=== PATIENT | female | born 1950 | race Caucasian/White ===

== ENCOUNTER 2016-10-24 05:55 | Day surgery (SDC) | payer OTHER ==
[2016-10-24 07:28] LABS: BASOPHIL 1.2 % (0-2.0); EOSINOPHIL 3.3 % (0-4.5); MCH 31.9 pg (25.7-33.7); MCHC 34.8 g/dl (32.0-36.0); MEAN CELL VOLUME 91.7 fl (80-96); MEAN PLT VOLUME 8.4 fl (7.5-11.1); NEUTROPHILS 48.6 % (42.8-82.8); PLATELET COUNT 252 K/MM3 (134-434); RDW 14.1 % (11.6-15.6)
[2016-10-24 07:34] LABS: ALBUMIN 3.9 g/dl (3.5-5.0); ALK PHOS 73 U/L (32-92); ANION GAP 7 (8-16); BILIRUBIN,TOTAL 0.4 mg/dl (0.2-1.0); CALCIUM 9.4 mg/dl (8.4-10.2); CO2 25 mmol/L (22-28); CREATININE 0.6 mg/dl (0.6-1.3); GLUCOSE,RANDOM 178 mg/dl (74-106); SGOT/AST 30 U/L (10-42); SGPT/ALT 46 U/L (10-40); TOT PROT 6.6 g/dl (6.4-8.3)
--- NOTE | 2016-10-24 07:35 | HP ---
Admitting History and Physical - Admission History of Present Illness: patient is a 66 y/o female with a past medical history of niddm, iron deficiency anemia, anxiety and bipolar disorder. Patient presents for ect, this will be her first ect treatment. she reports being diagnosed with depression in 2002. Patient attempted suicide in 2003 and 2006 after taking a large amount of pills. In 2009 she was diagnosed with bipolar depression. She was referred for ect after attempting several medication regimens with no relief. patient does report an increase in her depression within the past month and decreased energy. She denies any suicidal or homicidal ideation, visual or auditory hallucinations. History Source: Patient Limitations to Obtaining History: No Limitations - Past Medical History Heme/Onc: Yes: Anemia Endocrine: Yes: Diabetes Mellitus - Past Surgical History Past Surgical History: Yes: Colonoscopy, Hysterectomy Additional Past Surgical History: last colonscopy was 3 years ago, negative as per patient - Smoking History Smoking history: Never smoked Have you smoked in the past 12 months: No - Alcohol/Substance Use Hx Alcohol Use: No History of Substance Use: reports: None - Social History Usual Living Arrangement: Yes: Other (sister) ADL: Independent Occupation: retiried History of Recent Travel: No Home Medications - Allergies Allergies/Adverse Reactions: Allergies Allergy/AdvReac Type Severity Reaction Status Date / Time oxycodone AdvReac Intermediate Itching Verified 10/22/16 12:27 - Home Medications Home Medications: Ambulatory Orders Ferrous Sulfate 325 mg PO DAILY 10/22/16 Ibuprofen [Motrin -] 600 mg PO TID PRN 10/22/16 Lorazepam [Ativan] 2 mg PO TID 10/22/16 Metformin HCl 500 mg PO BID 10/22/16 Quetiapine Fumarate [Seroquel] 100 tab PO DAILY PRN 10/22/16 Quetiapine Fumarate [Seroquel] 300 mg PO HS 10/22/16 Family Disease History - Family Disease History Family History: Denies Review of Systems - Review of Systems Constitutional: reports: Lethargy Eyes: reports: No Symptoms HENT: reports: No Symptoms Neck: reports: No Symptoms Cardiovascular: reports: No Symptoms Respiratory: reports: No Symptoms Gastrointestinal: reports: No Symptoms Genitourinary: reports: No Symptoms Musculoskeletal: reports: No Symptoms Integumentary: reports: No Symptoms Neurological: reports: No Symptoms Endocrine: reports: No Symptoms Hematology/Lymphatic: reports: No Symptoms Psychiatric: reports: Anxiety, Depression Physical Examination Constitutional: Yes: Well Nourished, Anxious Eyes: Yes: WNL, Conjunctiva Clear, EOM Intact HENT: Yes: WNL, Atraumatic, Normocephalic Neck: Yes: WNL, Supple, Trachea Midline Cardiovascular: Yes: WNL, Regular Rate and Rhythm, S1, S2 Respiratory: Yes: WNL, Regular, CTA Bilaterally Gastrointestinal: Yes: WNL, Normal Bowel Sounds, Soft ...Rectal Exam: Yes: Deferred Renal/: Yes: WNL Breast(s): Yes: WNL Musculoskeletal: Yes: WNL Extremities: Yes: WNL Edema: No Peripheral Pulses WNL: Yes Peripheral Pulses: Left Radial: 4+, Right Radial: 4+, Left Doralis Pedis: 3+, Right Dorsalis Pedis: 3+, Left Femoral: 3+, Right Femoral: 3+ Integumentary: Yes: WNL Neurological: Yes: WNL, Alert, Oriented ...Motor Strength: WNL Psychiatric: Yes: WNL, Alert, Oriented Labs: CMP Sodium 135 mmol/L (136-145) L 10/24/16 06:45 Potassium 4.4 mmol/L (3.5-5.1) 10/24/16 06:45 Chloride 103 mmol/L (98-107) 10/24/16 06:45 Carbon Dioxide 25 mmol/L (22-28) 10/24/16 06:45 Anion Gap 7 (8-16) L 10/24/16 06:45 BUN 13 mg/dl (7-18) 10/24/16 06:45 Creatinine 0.6 mg/dl (0.6-1.3) 10/24/16 06:45 Creat Clearance w eGFR > 60 (>60) 10/24/16 06:45 Random Glucose 178 mg/dl (74-106) H 10/24/16 06:45 Calcium 9.4 mg/dl (8.4-10.2) 10/24/16 06:45 Total Bilirubin 0.4 mg/dl (0.2-1.0) 10/24/16 06:45 AST 30 U/L (10-42) 10/24/16 06:45 ALT 46 U/L (10-40) H 10/24/16 06:45 Alkaline Phosphatase 73 U/L (32-92) 10/24/16 06:45 Total Protein 6.6 g/dl (6.4-8.3) 10/24/16 06:45 Albumin 3.9 g/dl (3.5-5.0) 10/24/16 06:45 CBC WBC 5.0 K/mm3 (4.0-10.8) 10/24/16 06:45 RBC 3.86 M/mm3 (3.60-5.2) 10/24/16 06:45 Hgb 12.3 GM/dl (10.7-15.3) 10/24/16 06:45 Hct 35.4 % (32.4-45.2) 10/24/16 06:45 MCV 91.7 fl (80-96) 10/24/16 06:45 MCH 31.9 pg (25.7-33.7) 10/24/16 06:45 MCHC 34.8 g/dl (32.0-36.0) 10/24/16 06:45 RDW 14.1 % (11.6-15.6) 10/24/16 06:45 Plt Count 252 K/MM3 (134-434) 10/24/16 06:45 MPV 8.4 fl (7.5-11.1) 10/24/16 06:45 Neutrophils % 48.6 % (42.8-82.8) 10/24/16 06:45 Lymphocytes % 38.8 % (8-40) 10/24/16 06:45 Monocytes % 8.1 % (3.8-10.2) 10/24/16 06:45 Eosinophils % 3.3 % (0-4.5) 10/24/16 06:45 Basophils % 1.2 % (0-2.0) 10/24/16 06:45 Imaging - Results EKG: Image Reviewed (nsr no ectopy), Other Assessment/Plan pt is a 66 y/o female that presents for ect. labs and ekg reviewed pt is medically optimized for procedure.
[2016-10-24] MEDS ORDERED: KETAMINE HCL 500 MG/10 ML VIAL ONE (09:26)
[2016-10-24] MEDS ORDERED: ACETAMINOPHEN 325 MG TABLET (FP) PO PRN (10:01)
--- NOTE | 2016-10-24 10:10 | EKG ---
Test Reason : Blood Pressure : / mmHG Vent. Rate : 071 BPM Atrial Rate : 071 BPM P-R Int : 158 ms QRS Dur : 086 ms QT Int : 432 ms P-R-T Axes : 050 024 054 degrees QTc Int : 469 ms NORMAL SINUS RHYTHM NORMAL ECG NO PREVIOUS ECGS AVAILABLE Confirmed by DERRICK KING MD ([id number]) on 10/24/2016 10:09:28 AM Referred By: Jarrod Phelps Confirmed By:DERRICK KING MD
[2016-10-24] MEDS ORDERED: ACETAMINOPHEN 325 MG TABLET (FP) ONE (10:27)
== END 2016-10-24 10:40 | disposition home or self-care (01) ==
LOC: FECT 05:55
PROVIDERS: ATTEND Psychiatry & Neurology Psychiatry
PROC: GZB4ZZZ Other Electroconvulsive Therapy (ICD-10-PCS; principal; 2016-10-24 08:15)
DX: F33.2 Major depressive disorder, recurrent severe without psychotic features (principal)
CPT/HCPCS: 36415; 80053; 85025; 90870; 93005; 94760

== ENCOUNTER 2016-10-27 05:44 | Day surgery (SDC) | payer OTHER ==
[2016-10-27] MEDS ORDERED: KETAMINE HCL 500 MG/10 ML VIAL ONE (08:51)
== END 2016-10-27 10:45 | disposition home or self-care (01) ==
LOC: FECT 05:44
PROVIDERS: ATTEND Psychiatry & Neurology Psychiatry
PROC: GZB4ZZZ Other Electroconvulsive Therapy (ICD-10-PCS; principal; 2016-10-27 08:15)
DX: F33.2 Major depressive disorder, recurrent severe without psychotic features (principal)
CPT/HCPCS: 90870; 94760

== ENCOUNTER 2016-10-29 05:45 | Day surgery (SDC) | payer OTHER ==
[2016-10-29] MEDS ORDERED: ONDANSETRON 4 MG/2 ML VIAL IVPUSH PRN (07:44)
[2016-10-29] MEDS ORDERED: ACETAMINOPHEN 325 MG TABLET (FP) PO PRN (07:44)
[2016-10-29] MEDS ORDERED: LACTATED RINGERS SOLUTION 1,000 ML IV SCH (07:45)
[2016-10-29] MEDS ORDERED: KETAMINE HCL 500 MG/10 ML VIAL ONE (08:04)
== END 2016-10-29 09:40 | disposition home or self-care (01) ==
LOC: FECT 05:45
PROVIDERS: ATTEND Psychiatry & Neurology Psychiatry
PROC: GZB4ZZZ Other Electroconvulsive Therapy (ICD-10-PCS; principal; 2016-10-29 07:45)
DX: F33.2 Major depressive disorder, recurrent severe without psychotic features (principal)
CPT/HCPCS: 90870; 94760

== ENCOUNTER 2016-10-31 05:45 | Day surgery (SDC) | payer OTHER ==
[2016-10-31] MEDS ORDERED: KETAMINE HCL 500 MG/10 ML VIAL ONE (09:03)
== END 2016-10-31 11:00 | disposition home or self-care (01) ==
LOC: FECT 05:45
PROVIDERS: ATTEND Psychiatry & Neurology Psychiatry
PROC: GZB4ZZZ Other Electroconvulsive Therapy (ICD-10-PCS; principal; 2016-10-31 08:00)
DX: F33.2 Major depressive disorder, recurrent severe without psychotic features (principal)
CPT/HCPCS: 90870; 94760

== ENCOUNTER 2016-11-03 05:44 | Day surgery (SDC) | payer OTHER ==
[2016-11-03] MEDS ORDERED: KETAMINE HCL 500 MG/10 ML VIAL ONE (07:46)
== END 2016-11-03 09:45 | disposition home or self-care (01) ==
LOC: FECT 05:44
PROVIDERS: ATTEND Psychiatry & Neurology Psychiatry
PROC: GZB4ZZZ Other Electroconvulsive Therapy (ICD-10-PCS; principal; 2016-11-03 07:30)
DX: F33.2 Major depressive disorder, recurrent severe without psychotic features (principal)
CPT/HCPCS: 90870; 94760

== ENCOUNTER 2016-11-05 05:32 | Day surgery (SDC) | payer OTHER ==
[2016-11-05] MEDS ORDERED: KETAMINE HCL 500 MG/10 ML VIAL ONE (08:53)
[2016-11-05] MEDS ORDERED: ONDANSETRON 4 MG/2 ML VIAL IVPUSH PRN (09:18)
[2016-11-05] MEDS ORDERED: LACTATED RINGERS SOLUTION 1,000 ML IV SCH (09:30)
== END 2016-11-05 10:44 | disposition home or self-care (01) ==
LOC: FECT 05:32
PROVIDERS: ATTEND Psychiatry & Neurology Psychiatry
PROC: GZB4ZZZ Other Electroconvulsive Therapy (ICD-10-PCS; principal; 2016-11-05 07:30)
DX: F33.2 Major depressive disorder, recurrent severe without psychotic features (principal)
CPT/HCPCS: 90870; 94760

== ENCOUNTER 2017-02-02 05:47 | Day surgery (SDC) | payer OTHER ==
[2017-01-30 10:42] VITALS: BMI 31.7
--- NOTE | 2017-02-02 07:04 | HP ---
Admitting History and Physical - Admission History of Present Illness: patient is a 67 y/o female with a past medical history of NIDDM, PUD, anxiety, and bipolar disorder. Patient presents for ect, her last ECT was 10/24/16. patient reports are recent admission to [facility] for a bleeding peptic ulcer in 11/06. She reports receiving 2 units of prbc at [facility]. patient reports she has not yet followed up with GI or her primary care physician. Patient reports feeling well and reports taking iron supplements daily. patient denies any suicidal or homicidal ideation, visual or auditory hallucinations. History Source: Patient - Past Medical History Heme/Onc: Yes: Anemia Endocrine: Yes: Diabetes Mellitus - Past Surgical History Past Surgical History: Yes: Colonoscopy, Hysterectomy - Smoking History Smoking history: Never smoked Have you smoked in the past 12 months: No - Alcohol/Substance Use Hx Alcohol Use: No History of Substance Use: reports: None - Social History Usual Living Arrangement: Yes: Other (with sister) ADL: Independent Occupation: retiried History of Recent Travel: No Home Medications - Allergies Allergies/Adverse Reactions: Allergies Allergy/AdvReac Type Severity Reaction Status Date / Time oxycodone AdvReac Intermediate Itching Verified 01/30/17 10:29 - Home Medications Home Medications: Ambulatory Orders Ferrous Sulfate 325 mg PO DAILY 10/22/16 Lorazepam [Ativan] 2 mg PO HS 10/22/16 Metformin HCl 1,000 mg PO BID 10/22/16 Quetiapine Fumarate [Seroquel] 100 tab PO ASDIR PRN 10/22/16 Quetiapine Fumarate [Seroquel] 300 mg PO HS 10/22/16 Lorazepam [Ativan] 1 mg PO ASDIR 10/31/16 Family Disease History - Family Disease History Family History: Denies Review of Systems - Review of Systems Constitutional: reports: No Symptoms Eyes: reports: No Symptoms HENT: reports: No Symptoms Neck: reports: No Symptoms Cardiovascular: reports: No Symptoms Respiratory: reports: No Symptoms Gastrointestinal: reports: No Symptoms Genitourinary: reports: No Symptoms Musculoskeletal: reports: No Symptoms Integumentary: reports: No Symptoms Neurological: reports: No Symptoms Endocrine: reports: No Symptoms Hematology/Lymphatic: reports: No Symptoms Psychiatric: reports: No Symptoms Physical Examination Constitutional: Yes: Well Nourished, No Distress, Calm Eyes: Yes: WNL, Conjunctiva Clear, EOM Intact HENT: Yes: WNL, Atraumatic, Normocephalic Neck: Yes: WNL, Supple, Trachea Midline Cardiovascular: Yes: WNL, Regular Rate and Rhythm, S1, S2 Respiratory: Yes: WNL, Regular, CTA Bilaterally Gastrointestinal: Yes: WNL, Normal Bowel Sounds, Soft ...Rectal Exam: Yes: Deferred Renal/: Yes: WNL Breast(s): Yes: WNL Musculoskeletal: Yes: WNL Extremities: Yes: WNL Edema: No Peripheral Pulses WNL: Yes Peripheral Pulses: Left Radial: 4+, Right Radial: 4+, Left Doralis Pedis: 3+, Right Dorsalis Pedis: 3+, Left Femoral: 3+, Right Femoral: 3+ Integumentary: Yes: WNL Neurological: Yes: WNL, Alert, Oriented ...Motor Strength: WNL Psychiatric: Yes: WNL, Alert, Oriented Labs: Laboratory Tests 10/24/16 10/24/16 02/02/17 06:45 06:45 06:57 WBC 5.0 RBC 3.86 Hgb 12.3 Hct 35.4 MCV 91.7 MCH 31.9 MCHC 34.8 RDW 14.1 Plt Count 252 MPV 8.4 Neutrophils % 48.6 Lymphocytes % 38.8 Monocytes % 8.1 Eosinophils % 3.3 Basophils % 1.2 Sodium 135 L Potassium 4.4 Chloride 103 Carbon Dioxide 25 Anion Gap 7 L BUN 13 Creatinine 0.6 Creat Clearance w eGFR > 60 Random Glucose 178 H POC Glucometer 176 Calcium 9.4 Total Bilirubin 0.4 AST 30 ALT 46 H Alkaline Phosphatase 73 Total Protein 6.6 Albumin 3.9 Imaging - Results EKG: Other (nsr no ischemic changes) Assessment/Plan patient is a 67 y/o female that presents for ect, labs and ekg reviewed patient is low risk for procedure informed consent, risks/benefits to be obtained by Dr Phelps
[2017-02-02 07:50] LABS: BASOPHIL 0.9 % (0-2.0); EOSINOPHIL 2.8 % (0-4.5); MCH 28.8 pg (25.7-33.7); MCHC 33.1 g/dl (32.0-36.0); MEAN CELL VOLUME 87.1 fl (80-96); MEAN PLT VOLUME 9.3 fl (7.5-11.1); NEUTROPHILS 52.5 % (42.8-82.8); PLATELET COUNT 267 K/MM3 (134-434); RDW 15.1 % (11.6-15.6); WHITE BLOOD COUNT 5.1 K/mm3 (4.0-10.8)
[2017-02-02] MEDS ORDERED: KETAMINE HCL 500 MG/10 ML VIAL ONE (08:20)
[2017-02-02 10:01] VITALS: TEMP 98.2
[2017-02-02 10:02] VITALS: BP 151/82; PULSE 82
[2017-02-02] MEDS ORDERED: ONDANSETRON 4 MG/2 ML VIAL IVPUSH PRN (13:06)
[2017-02-02] MEDS ORDERED: LACTATED RINGERS SOLUTION 1,000 ML IV SCH (13:15)
== END 2017-02-02 10:10 | disposition home or self-care (01) ==
LOC: FECT 05:47
PROVIDERS: ATTEND Psychiatry & Neurology Psychiatry
PROC: GZB4ZZZ Other Electroconvulsive Therapy (ICD-10-PCS; principal; 2017-02-02 08:00)
DX: F33.2 Major depressive disorder, recurrent severe without psychotic features (principal)
CPT/HCPCS: 36415; 85025; 90870; 94760

== ENCOUNTER 2017-02-04 05:42 | Day surgery (SDC) | payer OTHER ==
[2017-02-04] MEDS ORDERED: LACTATED RINGERS SOLUTION 1,000 ML IV SCH (07:00)
[2017-02-04 07:13] VITALS: TEMP 97.9; BMI 31.7
[2017-02-04] MEDS ORDERED: KETAMINE HCL 500 MG/10 ML VIAL ONE (07:50)
[2017-02-04 09:25] VITALS: BP 148/92; PULSE 88
== END 2017-02-04 09:30 | disposition home or self-care (01) ==
LOC: FECT 05:42
PROVIDERS: ATTEND Psychiatry & Neurology Psychiatry
PROC: GZB4ZZZ Other Electroconvulsive Therapy (ICD-10-PCS; principal; 2017-02-04 07:15)
DX: F33.2 Major depressive disorder, recurrent severe without psychotic features (principal)
CPT/HCPCS: 90870; 94760

== ENCOUNTER 2017-02-06 06:34 | Day surgery (SDC) | payer OTHER ==
[2017-02-06 07:02] VITALS: BMI 31.7
[2017-02-06] MEDS ORDERED: MIDAZOLAM HCL 2 MG/2 ML SINGLE DOSE VIAL ONE (07:58)
[2017-02-06] MEDS ORDERED: KETAMINE HCL 500 MG/10 ML VIAL ONE (07:58)
[2017-02-06 09:02] VITALS: PULSE 86; TEMP 97.6
[2017-02-06] MEDS ORDERED: ONDANSETRON 4 MG/2 ML VIAL IVPUSH PRN (09:13)
[2017-02-06] MEDS ORDERED: LACTATED RINGERS SOLUTION 1,000 ML IV SCH (09:15)
[2017-02-06] MEDS ORDERED: ACETAMINOPHEN 325 MG TABLET (FP) PO ONE (09:50)
[2017-02-06 10:25] VITALS: BP 152/98
== END 2017-02-06 10:15 | disposition home or self-care (01) ==
LOC: FECT 06:34
PROVIDERS: ATTEND Psychiatry & Neurology Psychiatry
PROC: GZB4ZZZ Other Electroconvulsive Therapy (ICD-10-PCS; principal; 2017-02-06 07:15)
DX: F33.2 Major depressive disorder, recurrent severe without psychotic features (principal)
CPT/HCPCS: 90870; 94760

== ENCOUNTER 2017-02-09 05:38 | Day surgery (SDC) | payer OTHER ==
[2017-02-02 16:04] VITALS: BMI 31.7
[2017-02-09] MEDS ORDERED: KETAMINE HCL 500 MG/10 ML VIAL ONE (07:51)
[2017-02-09 09:01] VITALS: TEMP 97.6
[2017-02-09 09:46] VITALS: BP 143/83; PULSE 82
[2017-02-09] MEDS ORDERED: ONDANSETRON 4 MG/2 ML VIAL IVPUSH PRN (12:52)
[2017-02-09] MEDS ORDERED: LACTATED RINGERS SOLUTION 1,000 ML IV SCH (13:00)
== END 2017-02-09 09:47 | disposition home or self-care (01) ==
LOC: FECT 05:38
PROVIDERS: ATTEND Psychiatry & Neurology Psychiatry
PROC: GZB4ZZZ Other Electroconvulsive Therapy (ICD-10-PCS; principal; 2017-02-09 07:00)
DX: F33.2 Major depressive disorder, recurrent severe without psychotic features (principal)
CPT/HCPCS: 90870; 94760

== ENCOUNTER 2017-02-11 05:37 | Day surgery (SDC) | payer OTHER ==
[2017-02-05 10:18] VITALS: BMI 31.7
[2017-02-11 06:38] VITALS: TEMP 97.9
[2017-02-11] MEDS ORDERED: KETAMINE HCL 500 MG/10 ML VIAL ONE (07:34)
[2017-02-11] MEDS ORDERED: LACTATED RINGERS SOLUTION 1,000 ML IV SCH (07:45)
[2017-02-11 08:54] VITALS: BP 145/81; PULSE 86
== END 2017-02-11 09:04 | disposition home or self-care (01) ==
LOC: FECT 05:37
PROVIDERS: ATTEND Psychiatry & Neurology Psychiatry
PROC: GZB4ZZZ Other Electroconvulsive Therapy (ICD-10-PCS; principal; 2017-02-11 07:30)
DX: F33.2 Major depressive disorder, recurrent severe without psychotic features (principal)
CPT/HCPCS: 90870; 94760

== ENCOUNTER 2017-02-13 05:38 | Day surgery (SDC) | payer OTHER ==
[2017-02-05 13:15] VITALS: BMI 31.7
[2017-02-13] MEDS ORDERED: KETAMINE HCL 500 MG/10 ML VIAL ONE (08:20)
[2017-02-13] MEDS ORDERED: ONDANSETRON 4 MG/2 ML VIAL IVPUSH PRN (08:54)
[2017-02-13] MEDS ORDERED: LACTATED RINGERS SOLUTION 1,000 ML IV SCH (09:00)
[2017-02-13 10:33] VITALS: BP 168/88; PULSE 87; TEMP 97.7
== END 2017-02-13 10:31 | disposition home or self-care (01) ==
LOC: FECT 05:38
PROVIDERS: ATTEND Psychiatry & Neurology Psychiatry
PROC: GZB4ZZZ Other Electroconvulsive Therapy (ICD-10-PCS; principal; 2017-02-13 07:00)
DX: F33.2 Major depressive disorder, recurrent severe without psychotic features (principal)
CPT/HCPCS: 90870; 94760

== ENCOUNTER 2017-02-16 05:41 | Day surgery (SDC) | payer OTHER ==
[2017-02-11 12:18] VITALS: BMI 31.7
[2017-02-16] MEDS ORDERED: KETAMINE HCL 500 MG/10 ML VIAL ONE (07:21)
[2017-02-16 08:25] VITALS: TEMP 98.1
[2017-02-16 08:55] VITALS: BP 158/88; PULSE 82
== END 2017-02-16 08:57 | disposition home or self-care (01) ==
LOC: FECT 05:41
PROVIDERS: ATTEND Psychiatry & Neurology Psychiatry
PROC: GZB4ZZZ Other Electroconvulsive Therapy (ICD-10-PCS; principal; 2017-02-16 07:15)
DX: F33.2 Major depressive disorder, recurrent severe without psychotic features (principal)
CPT/HCPCS: 90870; 94760

== ENCOUNTER 2017-02-18 05:44 | Day surgery (SDC) | payer OTHER ==
[2017-02-16 11:03] VITALS: BMI 31.7
[2017-02-18 07:17] VITALS: TEMP 97.9
[2017-02-18] MEDS ORDERED: KETAMINE HCL 500 MG/10 ML VIAL ONE (07:45)
[2017-02-18 09:15] VITALS: BP 144/88; PULSE 84
== END 2017-02-18 09:15 | disposition home or self-care (01) ==
LOC: FECT 05:44
PROVIDERS: ATTEND Psychiatry & Neurology Psychiatry
PROC: GZB4ZZZ Other Electroconvulsive Therapy (ICD-10-PCS; principal; 2017-02-18 08:00)
DX: F33.2 Major depressive disorder, recurrent severe without psychotic features (principal)
CPT/HCPCS: 90870; 94760

== ENCOUNTER 2017-02-26 06:22 | Day surgery (SDC) | payer OTHER ==
[2017-02-26 06:46] VITALS: BMI 31.7
[2017-02-26 09:09] VITALS: TEMP 97.5
[2017-02-26 09:27] VITALS: BP 144/88; PULSE 88
== END 2017-02-26 09:15 | disposition home or self-care (01) ==
LOC: FECT 06:22
PROVIDERS: ATTEND Psychiatry & Neurology Psychiatry
PROC: GZB4ZZZ Other Electroconvulsive Therapy (ICD-10-PCS; principal; 2017-02-26 07:30)
DX: F33.2 Major depressive disorder, recurrent severe without psychotic features (principal)
CPT/HCPCS: 90870; 94760

== ENCOUNTER → 2017-03-12 | Day surgery (SDC) | payer OTHER ==
[~2017-03-12] MED LIST: LACTATED RINGERS SOLUTION 1,000 ML IV SCH; ONDANSETRON 4 MG/2 ML VIAL IVPUSH PRN; PROMETHAZINE HCL 25 MG/1 ML VIAL IVPB PRN; PROMETHAZINE HCL 25 MG/1 ML VIAL IVPUSH PRN
--- NOTE | 2017-03-12 07:30 | HP ---
Admitting History and Physical - Admission History of Present Illness: patient is a 67 y/o female with a past medical history of bipolar disorder, PUD , and NIDDM. Patient presents for ect, she reports minimal improvement of ECT. She reports some improvement in depressive symptoms since her last treatment. 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 She has follow up evaluation with the neurosurgeon, Dr Pineda this week. She denies any headaches at this time. Patient denies any suicidal or homicidal ideation, visual or auditory hallucinations. History Source: Patient Limitations to Obtaining History: No Limitations - Past Medical History Heme/Onc: Yes: Anemia Endocrine: Yes: Diabetes Mellitus - Past Surgical History Past Surgical History: Yes: Colonoscopy, Hysterectomy - Smoking History Smoking history: Never smoked Have you smoked in the past 12 months: No - Alcohol/Substance Use Hx Alcohol Use: No History of Substance Use: reports: None - Social History Usual Living Arrangement: Yes: Other (with sister) ADL: Independent Occupation: retiried History of Recent Travel: No Home Medications - Allergies Allergies/Adverse Reactions: Allergies Allergy/AdvReac Type Severity Reaction Status Date / Time oxycodone AdvReac Intermediate Itching Verified 01/30/17 10:29 - Home Medications Home Medications: Ambulatory Orders Ferrous Sulfate 325 mg PO DAILY 10/22/16 Lorazepam [Ativan] 2 mg PO HS 10/22/16 Metformin HCl 1,000 mg PO BID 10/22/16 Quetiapine Fumarate [Seroquel] 100 tab PO ASDIR PRN 10/22/16 Quetiapine Fumarate [Seroquel] 300 mg PO HS 10/22/16 Lorazepam [Ativan] 1 mg PO ASDIR 10/31/16 Family Disease History - Family Disease History Family History: Denies Review of Systems - Review of Systems Constitutional: reports: No Symptoms Eyes: reports: No Symptoms HENT: reports: No Symptoms Neck: reports: No Symptoms Cardiovascular: reports: No Symptoms Respiratory: reports: No Symptoms Gastrointestinal: reports: No Symptoms Genitourinary: reports: No Symptoms Musculoskeletal: reports: No Symptoms Integumentary: reports: No Symptoms Neurological: reports: No Symptoms Endocrine: reports: No Symptoms Hematology/Lymphatic: reports: No Symptoms Psychiatric: reports: Depression Physical Examination Constitutional: Yes: Well Nourished, No Distress, Calm Eyes: Yes: WNL, Conjunctiva Clear, EOM Intact HENT: Yes: WNL, Atraumatic, Normocephalic Neck: Yes: WNL, Supple, Trachea Midline Cardiovascular: Yes: WNL, Regular Rate and Rhythm, S1, S2 Respiratory: Yes: WNL, Regular, CTA Bilaterally Gastrointestinal: Yes: WNL, Normal Bowel Sounds, Soft ...Rectal Exam: Yes: Deferred Renal/: Yes: WNL Musculoskeletal: Yes: WNL Extremities: Yes: WNL Edema: No Peripheral Pulses WNL: Yes Peripheral Pulses: Left Radial: 4+, Right Radial: 4+, Left Doralis Pedis: 3+, Right Dorsalis Pedis: 3+, Left Femoral: 3+, Right Femoral: 3+ Integumentary: Yes: WNL Neurological: Yes: WNL, Alert, Oriented ...Motor Strength: WNL Psychiatric: Yes: WNL, Alert, Oriented Labs: reviewed 02/06 Imaging - Results EKG: Image Reviewed, Other (nsr) Assessment/Plan patient is a 67y/o female that presents for ect, labs and ekg reviewed patient is medically optimized for procedure informed consent, risks/benefits to be obtained by Dr Phelps
[2017-03-12 07:40] VITALS: BMI 31.7
[2017-03-12 10:17] VITALS: TEMP 98.1
[2017-03-12 10:43] VITALS: BP 150/88; PULSE 76
== END | disposition home or self-care (01) ==
LOC: CANPRESDC → FECT 05:45
PROVIDERS: ATTEND Psychiatry & Neurology Psychiatry
PROC: GZB4ZZZ Other Electroconvulsive Therapy (ICD-10-PCS; principal; 2017-03-12 07:30)
DX: F33.2 Major depressive disorder, recurrent severe without psychotic features (principal)
CPT/HCPCS: 90870; 94760

== ENCOUNTER 2017-03-26 05:43 | Day surgery (SDC) | payer OTHER ==
[2017-03-26 06:48] VITALS: BMI 31.7
[2017-03-26] MEDS ORDERED: KETAMINE HCL 500 MG/10 ML VIAL ONE (07:09)
[2017-03-26] MEDS ORDERED: ACETAMINOPHEN 325 MG TABLET (FP) PO PRN (07:49)
[2017-03-26] MEDS ORDERED: ONDANSETRON 4 MG/2 ML VIAL IVPUSH PRN (07:49)
[2017-03-26] MEDS ORDERED: LACTATED RINGERS SOLUTION 1,000 ML IV SCH (08:00)
[2017-03-26 08:27] VITALS: TEMP 97.5
[2017-03-26 09:56] VITALS: BP 126/72; PULSE 78
== END 2017-03-26 09:10 | disposition home or self-care (01) ==
LOC: FECT 05:43
PROVIDERS: ATTEND Psychiatry & Neurology Psychiatry
PROC: GZB4ZZZ Other Electroconvulsive Therapy (ICD-10-PCS; principal; 2017-03-26 07:30)
DX: F33.2 Major depressive disorder, recurrent severe without psychotic features (principal)
CPT/HCPCS: 90870; 94760

== ENCOUNTER 2017-04-02 05:41 | Day surgery (SDC) | payer OTHER ==
[2017-03-26 15:38] VITALS: BMI 31.7
[2017-04-02 08:46] VITALS: TEMP 98
[2017-04-02 09:39] VITALS: BP 141/82; PULSE 81
== END 2017-04-02 09:42 | disposition home or self-care (01) ==
LOC: FECT 05:41
PROVIDERS: ATTEND Psychiatry & Neurology Psychiatry
PROC: GZB4ZZZ Other Electroconvulsive Therapy (ICD-10-PCS; principal; 2017-04-02 08:00)
DX: F33.2 Major depressive disorder, recurrent severe without psychotic features (principal)
CPT/HCPCS: 82962; 90870; 94760

== ENCOUNTER 2017-04-06 05:40 | Day surgery (SDC) | payer OTHER ==
[2017-04-02 09:49] VITALS: BMI 31.7
[2017-04-06] MEDS ORDERED: KETAMINE HCL 500 MG/10 ML VIAL ONE (07:30)
[2017-04-06 08:51] VITALS: TEMP 97.6
[2017-04-06 12:25] VITALS: BP 130/78; PULSE 72
== END 2017-04-06 09:30 | disposition home or self-care (01) ==
LOC: FECT 05:40
PROVIDERS: ATTEND Psychiatry & Neurology Psychiatry
PROC: GZB4ZZZ Other Electroconvulsive Therapy (ICD-10-PCS; principal; 2017-04-06 07:00)
DX: F33.2 Major depressive disorder, recurrent severe without psychotic features (principal)
CPT/HCPCS: 82962; 90870; 94760

== ENCOUNTER 2017-04-14 07:22 | Day surgery (SDC) | payer OTHER ==
[2017-04-14 08:46] VITALS: BMI 31.6
[2017-04-14] MEDS ORDERED: KETAMINE HCL 500 MG/10 ML VIAL ONE (09:04)
[2017-04-14] MEDS ORDERED: ONDANSETRON 4 MG/2 ML VIAL IVPUSH PRN (09:20)
[2017-04-14] MEDS ORDERED: PROMETHAZINE HCL 25 MG/1 ML VIAL IVPUSH PRN (09:20)
[2017-04-14] MEDS ORDERED: ACETAMINOPHEN 325 MG TABLET (FP) PO PRN (09:20)
[2017-04-14] MEDS ORDERED: LACTATED RINGERS SOLUTION 1,000 ML IV SCH (09:30)
[2017-04-14 11:03] VITALS: TEMP 97.6
[2017-04-14 11:06] VITALS: PULSE 83
[2017-04-14 11:13] VITALS: BP 156/90
== END 2017-04-14 10:50 | disposition home or self-care (01) ==
LOC: FECT 07:22
PROVIDERS: ATTEND Psychiatry & Neurology Psychiatry
PROC: GZB4ZZZ Other Electroconvulsive Therapy (ICD-10-PCS; principal; 2017-04-14 08:30)
DX: F33.2 Major depressive disorder, recurrent severe without psychotic features (principal)
CPT/HCPCS: 90870; 94760

== ENCOUNTER 2017-04-21 05:48 | Day surgery (SDC) | payer OTHER ==
[2017-04-14 11:56] VITALS: BMI 31.6
--- NOTE | 2017-04-21 07:20 | HP ---
Admitting History and Physical - Admission History of Present Illness: patient is a 67 y/o female with a past medical history of bipolar disorder, spinal stenosis, PUD, NIDDM, patient presents for ect, her last ect was . She reports ongoing issues with depression, patient denies any suicidal or homicidal ideation, visual or auditory hallucinations. Patient denies any recent illness or hospitalizations. History Source: Patient Limitations to Obtaining History: No Limitations - Past Medical History Heme/Onc: Yes: Anemia Endocrine: Yes: Diabetes Mellitus - Past Surgical History Past Surgical History: Yes: Colonoscopy, Hysterectomy - Smoking History Smoking history: Never smoked Have you smoked in the past 12 months: No - Alcohol/Substance Use Hx Alcohol Use: No History of Substance Use: reports: None - Social History ADL: Independent Occupation: retiried History of Recent Travel: No Home Medications - Allergies Allergies/Adverse Reactions: Allergies Allergy/AdvReac Type Severity Reaction Status Date / Time oxycodone AdvReac Intermediate Itching Verified 01/30/17 10:29 - Home Medications Home Medications: Ambulatory Orders Lorazepam [Ativan] 2 mg PO HS 10/22/16 Metformin HCl 1,000 mg PO BID 10/22/16 Quetiapine Fumarate [Seroquel] 100 tab PO ASDIR PRN 10/22/16 Quetiapine Fumarate [Seroquel] 300 mg PO HS 10/22/16 Lorazepam [Ativan] 1 mg PO ASDIR 10/31/16 Family Disease History - Family Disease History Family History: Denies Review of Systems - Review of Systems Constitutional: reports: No Symptoms Eyes: reports: No Symptoms HENT: reports: No Symptoms Neck: reports: No Symptoms Cardiovascular: reports: No Symptoms Respiratory: reports: No Symptoms Gastrointestinal: reports: No Symptoms Genitourinary: reports: No Symptoms Musculoskeletal: reports: No Symptoms Integumentary: reports: No Symptoms Neurological: reports: No Symptoms Endocrine: reports: No Symptoms Hematology/Lymphatic: reports: No Symptoms Psychiatric: reports: Depression Physical Examination Constitutional: Yes: Well Nourished, No Distress, Calm Eyes: Yes: WNL, Conjunctiva Clear, EOM Intact HENT: Yes: WNL, Atraumatic, Normocephalic Neck: Yes: WNL, Supple, Trachea Midline Cardiovascular: Yes: WNL, Regular Rate and Rhythm, S1, S2 Respiratory: Yes: WNL, Regular, CTA Bilaterally Gastrointestinal: Yes: WNL, Normal Bowel Sounds, Soft ...Rectal Exam: Yes: Deferred Renal/: Yes: WNL Breast(s): Yes: WNL Musculoskeletal: Yes: WNL Extremities: Yes: WNL Edema: No Peripheral Pulses WNL: Yes Integumentary: Yes: WNL Neurological: Yes: WNL, Alert, Oriented ...Motor Strength: WNL Psychiatric: Yes: WNL, Alert, Oriented Labs: cbc reviewed 02/06 bmp reviewed 11/06 Imaging - Results EKG: Image Reviewed, Other (nsr) Assessment/Plan patient is a 67 y/o female that presents for ecr, labs and ekg reviewed patient is medically optimized for procedure informed consent, risks/benefits to be obtained by Dr Phelps
[2017-04-21] MEDS ORDERED: ACETAMINOPHEN 325 MG TABLET (FP) PO PRN (08:01)
[2017-04-21] MEDS ORDERED: KETAMINE HCL 500 MG/10 ML VIAL ONE (08:08)
[2017-04-21 09:17] VITALS: PULSE 80; TEMP 97.4
[2017-04-21 10:14] VITALS: BP 142/80
== END 2017-04-21 10:10 | disposition home or self-care (01) ==
LOC: FECT 05:48
PROVIDERS: ATTEND Psychiatry & Neurology Psychiatry
PROC: GZB4ZZZ Other Electroconvulsive Therapy (ICD-10-PCS; principal; 2017-04-21 07:30)
DX: F33.2 Major depressive disorder, recurrent severe without psychotic features (principal)
CPT/HCPCS: 82962; 90870; 94760

== ENCOUNTER 2017-04-23 05:39 | Day surgery (SDC) | payer OTHER ==
[2017-04-21 12:07] VITALS: BMI 31.6
[2017-04-23] MEDS ORDERED: KETAMINE HCL 500 MG/10 ML VIAL ONE (07:03)
[2017-04-23 08:17] VITALS: TEMP 97.8
[2017-04-23 08:27] VITALS: BP 137/87; PULSE 74
== END 2017-04-23 08:50 | disposition home or self-care (01) ==
LOC: FECT 05:39
PROVIDERS: ATTEND Psychiatry & Neurology Psychiatry
PROC: GZB4ZZZ Other Electroconvulsive Therapy (ICD-10-PCS; principal; 2017-04-23 07:15)
DX: F33.2 Major depressive disorder, recurrent severe without psychotic features (principal)
CPT/HCPCS: 82962; 90870; 94760